=== PATIENT | male | born 1965 | race American Indian/Alaskan Native ===

== ENCOUNTER 2021-05-10 10:32 | Emergency (ER) | payer SELFPAY ==
--- NOTE | 2021-05-10 12:13 | Emergency Department Report ---
ED Neck Pain/Injury HPI - General Chief Complaint: Neck Pain/Injury Stated Complaint: STIFF NECK Time Seen by Provider: 05/10/21 11:59 Mode of arrival: Ambulatory Limitations: No Limitations - History of Present Illness Initial Comments: Complaint: "My neck has been stuck like this for 2 months." HPI: This 55-year-old male without significant past medical history presents with neck pain. Neck feels better in the flexed position. He denies trauma. Mild to moderate in severity. No treatment attempted. MD Complaint: neck pain -: Gradual, month(s) (2 months) Place: other (none) Severity: mild, moderate Quality: aching Consistency: constant Improves With: other (flexed position) Worsens With: other (movement) Context: other (No trauma) Associated Symptoms: none Treatments Prior to Arrival: none - Related Data Previous Rx's Medication Instructions Recorded Last Taken Type Cyclobenzaprine [Flexeril] 10 mg PO TID PRN #30 05/10/21 Unknown Rx Ibuprofen [Motrin 400 MG tab] 400 mg PO TID 5 Days #15 tablet 05/10/21 Unknown Rx Allergies Allergy/AdvReac Type Severity Reaction Status Date / Time No Known Allergies Allergy Verified 05/10/21 10:52 ED Review of Systems ROS: Stated complaint: STIFF NECK Other details as noted in HPI Comment: All other systems reviewed and negative Constitutional: denies: chills, fever, malaise Respiratory: denies: cough Cardiovascular: denies: chest pain Gastrointestinal: denies: abdominal pain, nausea, vomiting ED Past Medical Hx - Past Medical History Previous Medical History?: No - Surgical History Past Surgical History?: No - Social History Smoking Status: Current Every Day Smoker Substance Use Type: None - Medications Home Medications: Home Medications Medication Instructions Recorded Confirmed Last Taken Type Cyclobenzaprine [Flexeril] 10 mg PO TID PRN #30 05/10/21 Unknown Rx Ibuprofen [Motrin 400 MG tab] 400 mg PO TID 5 Days #15 tablet 05/10/21 Unknown Rx ED Physical Exam - General Limitations: No Limitations General appearance: alert, in no apparent distress - Head Head exam: Present: atraumatic, normocephalic - Eye Eye exam: Present: normal appearance - ENT ENT exam: Present: mucous membranes moist - Neck Neck exam: Present: other (head held in flex position). Absent: tenderness, meningismus - Respiratory Respiratory exam: Present: normal lung sounds bilaterally. Absent: respiratory distress, wheezes, rales, rhonchi, stridor - Cardiovascular Cardiovascular Exam: Present: regular rate, normal rhythm, normal heart sounds. Absent: systolic murmur, diastolic murmur, rubs, gallop - GI/Abdominal GI/Abdominal exam: Present: soft, normal bowel sounds. Absent: distended, tenderness, guarding, rebound - Rectal Rectal exam: Present: deferred - Extremities Exam Extremities exam: Present: normal inspection - Back Exam Back exam: Present: normal inspection - Neurological Exam Neurological exam: Present: alert, oriented X3 - Expanded Neurological Exam Expanded Motor strength exam: RUE: 5, LUE: 5 DTR: bicep (R): 0, bicep (L): 0, tricep (R): 0, tricep (L): 0 - Psychiatric Psychiatric exam: Present: normal affect, normal mood - Skin Skin exam: Present: warm, dry, intact, normal color. Absent: rash ED Course Vital Signs 05/10/21 10:49 Temperature 97.6 F Pulse Rate 78 Respiratory 16 Rate Blood Pressure 139/77 O2 Sat by Pulse 98 Oximetry ED Medical Decision Making - Medical Decision Making Neck pain: Patient keeps neck in flexed position suspect degenerative disc disease consideration includes torticollis. Has intact upper extremity strength. Prescribed ibuprofen Flexeril referred to associate relations specialist. Critical care attestation.: If time is entered above; I have spent that time in minutes in the direct care of this critically ill patient, excluding procedure time. ED Disposition Clinical Impression: DDD (degenerative disc disease), cervical Disposition: HOME / SELF CARE / HOMELESS Is pt being admited?: No Does the pt Need Aspirin: No Condition: Stable Instructions: Degenerative Disk Disease Prescriptions: Cyclobenzaprine [Flexeril] 10 mg PO TID PRN #30 PRN Reason: Muscle Spasm Ibuprofen [Motrin 400 MG tab] 400 mg PO TID 5 Days #15 tablet Referrals: NETTA WAGONER II, MD [Staff Physician] - 3-5 Days
[2021-05-10 12:41] VITALS: BP 128/72
== END 2021-05-10 12:41 | disposition home or self-care (01) ==
LOC: ED 10:32
DX: M50.30 Other cervical disc degeneration, unspecified cervical region (principal); F17.200 Nicotine dependence, unspecified, uncomplicated; Z79.899 Other long term (current) drug therapy
CPT/HCPCS: 99282